=== PATIENT | female | born 1945 | race Caucasian/White ===

== ENCOUNTER → 2023-05-30 06:19 | Day surgery (SDC) | payer MEDICARE, OTHER, SELFPAY | LOC: GI 06:19 | PROVIDERS: ATTENDING PHYSICIAN Internal Medicine Gastroenterology | DX: Z12.11 Encounter for screening for malignant neoplasm of colon (principal); K64.8 Other hemorrhoids; K57.30 Diverticulosis of large intestine without perforation or abscess without bleeding; D12.3 Benign neoplasm of transverse colon; Z86.010 Personal history of colon polyps | CPT/HCPCS: 45380; 88305 ==

== ENCOUNTER → 2023-06-02 06:20 | Day surgery (SDC) | payer MEDICARE, OTHER, SELFPAY ==
[2023-06-02 11:55] VITALS: BMI 21.4
[2023-06-02 12:02] VITALS: BP 157/101; BMI 21.4
[2023-06-02] MEDS: TYLENOL 1000 MG PO (12:12)
[2023-06-02] MEDS: CELEBREX 200 MG PO (12:12)
[2023-06-02] MEDS: NORMOSOL-R 1000 IV (12:27)
[2023-06-02 17:30] VITALS: BP 134/78; BP 157/101
[2023-06-02 17:45] VITALS: BP 141/75
[2023-06-02 17:50] VITALS: BP 141/75
[2023-06-02 18:05] VITALS: BP 143/85
[2023-06-02 18:20] VITALS: BP 137/89
== END ==
LOC: SDS 06:20
PROVIDERS: ATTENDING PHYSICIAN Student in an Organized Health Care Education/Training Program
DX: M20.12 Hallux valgus (acquired), left foot (principal); M20.42 Other hammer toe(s) (acquired), left foot; M21.622 Bunionette of left foot; D16.32 Benign neoplasm of short bones of left lower limb
CPT/HCPCS: 28292; 28110; 28285; C1713; C1776

== ENCOUNTER 2023-06-17 10:13 | Emergency (ER) | payer MEDICARE, OTHER, SELFPAY ==
[2023-06-17] VITALS (16 sets, daily range): BP systolic 114–149; BP diastolic 75–115; BMI 22.8
[2023-06-17] MEDS: DILAUDID 1 MG IV (10:44)
[2023-06-17 11:03] LABS: % Basophils 0.9 % (0-2); % Eosinophils 1.2 % (0-6); % Immature Granulocytes 0.4 % (0-0.5); % Lymphocytes 19.1 % (20.5-51.1); % Monocytes 7.7 % (1.7-9.3); % Neutrophils 70.7 % (42.2-75.2); Absolute Basophils 0.1 10^3/uL (0-0.2); Absolute Eosinophils 0.1 10^3/uL (0-0.7); Absolute Lymphocytes 1.4 10^3/uL (1.2-3.4); Absolute Monocytes 0.6 10^3/uL (0.1-0.6); Absolute Neutrophils 5.3 10^3/uL (1.4-6.5); Hematocrit 38.5 % (37.0-47.0); Mean Corp Hgb Conc. 33.8 g/dL (33.0-37.0); Mean Corpuscular Hgb 31.8 pg (27.0-31.0); Mean Corpuscular Volume 94.1 fL (81.0-99.0); Mean Platelet Volume 10.6 fL (7.4-10.4); Nucleated Red Blood Cells % 0 %; Platelet Count 283 10^3/uL (130-400); Red Blood Cell Count 4.09 10^6/uL (4.20-5.40); Red Cell Dist. Width 12.9 % (11.5-14.5); White Blood Cell Count 7.6 10^3/uL (4.8-10.8)
[2023-06-17 11:10] LABS: Blood Urea Nitrogen 25 mg/dl (7-17); Calcium 9.3 mg/dl (8.4-10.2); Carbon Dioxide 30 mmol/L (22-30); Chloride 102 mmol/L (98-107); Estimated Creatinine Clearance 65 ml/min; Glucose 88 mg/dl (70-99); Potassium 3.4 mmol/L (3.5-5.1); Sodium 139 mmol/L (135-145); eGFR > 60.00
--- NOTE | 2023-06-17 12:29 | ED.GENMED ---
History of Present Illness
<Yared Muñoz Jr., PA-C - Last Filed: 06/17/23 14:42>
General
Chief Complaint: Musculo-Skeletal Complaint
Source: patient
Exam Limitations: none
Time Seen by Provider: 06/17/23 10:34
Nursing documentation reviewed up to this point in time: agreed with
Travel History
Have you had any contact with someone who has COVID-19?: No
Do you have any symptoms of coronavirus? Fever > 100 degrees, chills, cough, shortness of breath, sore throat, loss of taste or smell, muscle aches, or headache?: No
History of Present Illness
History of Present Illness:
The patient is a 78-year-old female with past medical history of A-fib hypertension anxiety multiple orthopedic surgeries presenting to the emergency department today after feeling a pop in her right hip after leaning over. Unable to ambulate
since. Of note she recently had surgery to her left foot she claims this is otherwise been healing well.
Past History
<Yared Muñoz Jr., PA-C - Last Filed: 06/17/23 14:42>
Past History
ED Past Medical History: Arrthythmia (Atrial fibrillation), HTN and Other (Arthritis)
ED Past Surgical History: Gynecological (Hysterectomy), Orthopedic (Bilateral knee replacements, left total hip replacement) and Tonsilectomy
Social History
Tobacco: Non-smoker
Alcohol: None
Drug: None
Personal: Single
Review of Systems
<Yared Muñoz Jr., PA-C - Last Filed: 06/17/23 14:42>
Review of Systems
Allergies reviewed?: Yes
All Other Systems: ROS reviewed and negative except as documented in HPI and ROS
Phy Exam
<Yared Muñoz Jr., PA-C - Last Filed: 06/17/23 14:42>
Physical Exam
Physical Exam:
GENERAL: Alert , in no apparent distress
EYE: pupils equal and reactive
NECK: Supple, no significant adenopathy.
ENT: o/p clr, mmm.
CARDIAC: Regular rate and rhythm .
LUNGS: Clear breath sounds bilaterally, no acute respiratory distress, no wheezes/rales/rhonchi
ABDOMEN: Soft, without focal tenderness, no r/g, no cvat
NEUROLOGICAL: Alert and oriented, no focal neuro deficits
SKIN: Warm and dry, skin intact.
MUSCULOSKELETAL: Deformity and tenderness palpation of the right hip. Unable to move without significant pain. Well perfused.
PSYCH: Normal and appropriate interaction.
Course
<Yared Muñoz Jr., KEIRA-Jose - Last Filed: 06/17/23 14:42>
Orders/Labs/Results
Orders:
Orders
06/17/23 10:37
Hip, Right 2-3 Views [CR Hip - RT w/wo Pel 2-3 Vw*] Urgent
Comment:
Reason For Exam: hip pain felt pop, had total hip
Include a pelvis x-ray?: Yes
06/17/23 10:41
HYDROmorphone [Dilaudid] 1 mg IV NOW STA
06/17/23 10:43
BMP [Basic Metabolic Panel] Urgent
CBC/With Diff [Complete Blood Count/With Diff] Urgent
06/17/23 12:50
Propofol [Diprivan] 20 ml .ROUTE .STK-MED
06/17/23 13:18
Hip, Right 2-3 Views [CR Hip - RT w/wo Pel 2-3 Vw*] Urgent
Comment:
Reason For Exam: post reduction needs portable
Include a pelvis x-ray?: No
Abnormal Lab Results
06/17/23
10:43
RBC 4.09 L 10^6/uL
(4.20-5.40)
MCH 31.8 H pg
(27.0-31.0)
MPV 10.6 H fL
(7.4-10.4)
Lymphocytes % 19.1 L %
(20.5-51.1)
Potassium 3.4 L mmol/L
(3.5-5.1)
BUN 25 H mg/dl
(7-17)
06/17/23 10:43
06/17/23 10:43
Vital Signs
Initial and Last Documented VS:
Initial Vital Signs
Temp Pulse Resp BP Pulse Ox
98.1 F 72 13 148/85 99
06/17/23 10:31 06/17/23 10:31 06/17/23 10:31 06/17/23 10:31 06/17/23 10:31
Last Documented Vital Signs
Temp Pulse Resp BP Pulse Ox
97.8 F 59 13 139/86 95
06/17/23 12:51 06/17/23 14:30 06/17/23 14:30 06/17/23 14:15 06/17/23 14:30
<Parvez Sims, DO - Last Filed: 06/17/23 13:12>
Orders/Labs/Results
Orders:
Orders
06/17/23 10:37
Hip, Right 2-3 Views [CR Hip - RT w/wo Pel 2-3 Vw*] Urgent
Comment:
Reason For Exam: hip pain felt pop, had total hip
Include a pelvis x-ray?: Yes
06/17/23 10:41
HYDROmorphone [Dilaudid] 1 mg IV NOW STA
06/17/23 10:43
BMP [Basic Metabolic Panel] Urgent
CBC/With Diff [Complete Blood Count/With Diff] Urgent
06/17/23 12:50
Propofol [Diprivan] 20 ml .ROUTE .STK-MED
06/17/23 13:18
Hip, Right 2-3 Views [CR Hip - RT w/wo Pel 2-3 Vw*] Urgent
Comment:
Reason For Exam: post reduction needs portable
Include a pelvis x-ray?: No
Abnormal Lab Results
06/17/23
10:43
RBC 4.09 L 10^6/uL
(4.20-5.40)
MCH 31.8 H pg
(27.0-31.0)
MPV 10.6 H fL
(7.4-10.4)
Lymphocytes % 19.1 L %
(20.5-51.1)
Potassium 3.4 L mmol/L
(3.5-5.1)
BUN 25 H mg/dl
(7-17)
06/17/23 10:43
06/17/23 10:43
Vital Signs
Initial and Last Documented VS:
Initial Vital Signs
Temp Pulse Resp BP Pulse Ox
98.1 F 72 13 148/85 99
06/17/23 10:31 06/17/23 10:31 06/17/23 10:31 06/17/23 10:31 06/17/23 10:31
Last Documented Vital Signs
Temp Pulse Resp BP Pulse Ox
97.8 F 59 13 139/86 95
06/17/23 12:51 06/17/23 14:30 06/17/23 14:30 06/17/23 14:15 06/17/23 14:30
Procedures
<Yared Muñoz Jr., PA-C - Last Filed: 06/17/23 14:42>
Joint/Fracture Reduction
Right Hip:
Indication for procedure:: right hip dislocation
Procedure completed by: Myself, Dr. Limon
Consent form signed: Yes
Joint reduced: with anesthesia sedation (Propofol)
Anesthesia/sedation: Moderate sedation
Injury was: closed
Further treatement: needs re-check only
Post reduction exam: stable
Capillary Refill: normal
Normal distal neurovascular exam?: Yes
Peripheral Pulses: dorsalis pedis (right): 2+
Additional information:
Time out 1254 total procedure 11 minutes. Patient was given 80 mg of propofol with good sedation. This was reduced with traction and external rotation. Post film performed
<Yared Muñoz Jr., PA-C - Last Filed: 06/17/23 14:42>
MDM/Problems Addressed
MDM/Problems Addressed:
78-year-old female presenting to the emergency department today with concerns of right hip discomfort after feeling a pop when leaning over. History of hip replacement. Here deformity of the right hip appears consistent with dislocation x-ray
confirming. Neurovascular intact distally
Patient last ate at least 4 hours prior to sedation for the dislocation of the hip. Patient without any known allergies to anesthesia no known history of propofol has had multiple procedures before without any issues with anesthesia. Patient with
normal posterior pharynx. Mallampati class II.
Reduction performed without incident. No complications. Case discussed with orthopedics. Patient will follow-up closely and was discharged with a knee immobilizer to reduce the possibility of significant hip flexion. Return precautions given.
<Yared Muñoz Jr., PA-C - Last Filed: 06/17/23 14:42>
*Critical Care Note
Total Time (30-74mins, 75-104mins- exclusive of procedures): Not Applicable
ED Attending Note
<Yared Muñoz Jr., PA-C - Last Filed: 06/17/23 14:42>
-
Portions of this chart may have been created with voice recognition software.� Occasional wrong word or��sound alike� substitutions may have occurred due to the inherent limitations of voice recognition software.
<Parvez Sims DO - Last Filed: 06/17/23 13:12>
ED Attending Note
Patient seen and examined by attending physician: Yes
I performed the substantive portion of visit, reviewed & personally made and approve the management plan that is documented in note by myself or SAVANNA.: Yes
I performed a history and physical exam of patient and discussed management with resident, I reviewed resident's note and agree with documented findings and plan of care.: Yes
ED Attending Note:
I personally performed bedside evaluation. The patient has exam consistent with hip dislocation confirmed by x-rays that I reviewed. The patient was given a total of 90 mg of propofol (20 mg then 10 then 10 then 10 then 10 then 10 mg then 20 mg).
I personally attempted reduction procedure on the bed then at [place] was able to perform closed reduction successfully.
Discharge Plan
Departure
Patient Disposition: Home (Routine Discharge)
Date of Disposition: 06/17/23
Time of Disposition: 14:41
Patient with high blood pressure during this ER visit?: No
Condition: Good
Covid-19: Not Applicable
Discharge Problem:
Dislocation of hip, right, closed
Instructions: Hip Dislocation (DC)
Prescriptions:
No Action
estradiol 0.5 MG tablet
0.5 mg PO DAILY
cyclosporine [Restasis] 10 DROPS dropperette
1 drp BOTH EYES BID Qty: 0
Vitamin C 2,000 MG tablet extended release
2,000 mg PO DAILY
flecainide 100 MG tablet
100 mg PO BID
atenolol 50 MG tablet
50 mg PO BID
aspirin 81 MG tablet,chewable
81 mg PO DAILY Qty: 30 0RF
lisinopril 20 MG tablet
20 mg PO DAILY
acetaminophen [Tylenol Extra Strength] 500 MG tablet
1,000 mg PO Q6HPRN PRN (Reason: PAIN)
coenzyme [id number] E 1 CAP capsule
1 cap PO DAILY
cholecalciferol (vitamin D3) 2,000 UNITS tablet
2,000 units PO DAILY
omega 1-szu-wcy-fish oil [Fish Oil] 1 EACH capsule
2 ea PO DAILY
PreserVision AREDS-2 1 EACH capsule
1 ea PO BID
diphenhydramine-acetaminophen [Tylenol PM Extra Strength] 1 EACH tablet
1 ea PO HSPRN PRN (Reason: SLEEP)
furosemide 40 mg Tablet
40 mg PO DAILY
potassium chloride [Klor-Con M20] 20 mEq Tablet,Er Particles/Crystals
20 meq PO DAILY
colestipol 1 gram Tablet
1 g PO TID
Prevagen
1 tab PO DAILY
Probiotic Acidophilus
1 tab PO DAILY
Referrals:
Noe Whiteside MD [Active] - Follow up in 1 week
Mitch Marc MD [Family Provider] -
Activity Restrictions/Additional Instructions:
You came to the emergency department today with concerns of a hip dislocation. This was reduced here. Please avoid any excessive flexion of the hip. Please wear the knee immobilizer to help with this. Follow close with Ortho. Return to the
emergency department for any worsening, new or concerning symptoms.
Interventions
Interventions:
*Risk Screen - Suicide Last Done: 06/17/23 10:31
*General Assessment Last Done: 06/17/23 10:31
*Neglect/Abuse Screening Last Done: 06/17/23 10:31
ED- Fall Risk Assessment Last Done: 06/17/23 10:37
*ED COVID-19 Vaccine History Last Done: 06/17/23 10:31
ED-Musculoskeletal Assessment Last Done: 06/17/23 10:37
== END 2023-06-17 15:11 | disposition home or self-care (01) ==
LOC: EMR 10:13
PROVIDERS: Physician Assistant; EMERGENCY PHYSICIAN Emergency Medicine; FAMILY PHYSICIAN Internal Medicine
DX: T84.020A Dislocation of internal right hip prosthesis, initial encounter (principal); W19.XXXA Unspecified fall, initial encounter; Y79.2 Prosthetic and other implants, materials and accessory orthopedic devices associated with adverse incidents
CPT/HCPCS: 99285; 96374; 27265; 99152; 73502; 80048; 85025

== ENCOUNTER 2023-12-24 06:46 | Emergency (ER) | payer MEDICARE, OTHER, SELFPAY ==
[2023-12-24] VITALS (12 sets, daily range): BP systolic 119–182; BP diastolic 57–104; BMI 24.2
--- NOTE | 2023-12-24 07:43 | ED.MUSCINJ ---
HPI-Injury
<Bharat Benitez PA-C - Last Filed: 12/24/23 09:49>
General
Chief Complaint: Musculo-Skeletal Complaint
Source: patient
Exam Limitations: none
Time Seen by Provider: 12/24/23 07:36
History of Present Illness-Injury
Initial Injury comments:
78-year-old female presents with right hip pain starting today. She said she bent in the wrong direction of her hip pop out of place. Her right hip was replaced in 2017. She has had 1 prior dislocation several months ago. She with severe pain to
the right. She is not anticoagulated. No other complaints at this time
Past History
<Bharat Benitez PA-C - Last Filed: 12/24/23 09:49>
Past History
ED Past Medical History: Arrthythmia (Atrial fibrillation), HTN and Other (Arthritis)
ED Past Surgical History: Gynecological (Hysterectomy), Orthopedic (Bilateral knee replacements, left total hip replacement) and Tonsilectomy
Social History
Tobacco: Non-smoker
Alcohol: None
Drug: None
Personal: Single
Phy Exam
<Bharat Benitez PA-C - Last Filed: 12/24/23 09:49>
Physical Exam
Physical Exam:
General: Well-appearing but uncomfortable female no acute respiratory distress
HEENT: Normocephalic
Musculoskeletal exam: Right leg is held in flexion with internal rotation she is tender about the right
Extremities: No cyanosis
Injury Course
<Bharat Benitez PA-C - Last Filed: 12/24/23 09:49>
Orders/Labs/Results
Orders:
Orders
12/24/23 07:42
CR Hip - RT without Pel 1 Vw Urgent
Comment:
Reason For Exam: pain, possible dislocation
12/24/23 08:36
ASA Classification Routine
Propofol [Diprivan] 100 mg IV NOW STA
12/24/23 09:04
CR Hip - RT without Pel 1 Vw Urgent
Comment:
Reason For Exam: post reduction
12/24/23 09:15
Knee Immobilizer Right-Treatme ONCE
<Reynaldo Santillan, DO - Last Filed: 12/24/23 09:05>
Orders/Labs/Results
Orders:
Orders
12/24/23 07:42
CR Hip - RT without Pel 1 Vw Urgent
Comment:
Reason For Exam: pain, possible dislocation
12/24/23 08:36
ASA Classification Routine
Propofol [Diprivan] 100 mg IV NOW STA
12/24/23 09:04
CR Hip - RT without Pel 1 Vw Urgent
Comment:
Reason For Exam: post reduction
12/24/23 09:15
Knee Immobilizer Right-Treatme ONCE
Procedures
<Reynaldo Santillan, DO - Last Filed: 12/24/23 09:05>
Moderate Sedation
ASA Risk Score: Class II
Chart and allergies reviewed: Yes
Consent for anesthesia obtained: Yes
Time out completed (validating right patient & procedure): Yes
Moderate Sedation Start Time(when first medication is given): 08:53
History of difficult intubation: No
Airway free of obstruction: Yes
Patient has a gag reflex: Yes
Patient is able to open mouth: Yes
Patient has no dentures: Yes
Patient has no loose teeth: Yes
Medication administered by Provider during Moderate Sedation: IV Propofol (mg)
Total dose administered: 75
Time drug administered: 08:53
Moderate Sedation Procedure End Time: 09:04
Joint/Fracture Reduction
Right Anterior Hip:
Indication for procedure:: Right hip dislocation
Procedure completed by: Geovanny Benitez PA-C
Consent form signed: Yes
Joint reduced: with anesthesia sedation
Injury was: closed
Further treatement: needs re-check only
Post reduction exam: stable
Capillary Refill: normal
Peripheral Pulses: dorsalis pedis (right): 2+
<Bharat Benitez PA-C - Last Filed: 12/24/23 09:49>
MDM/Problems Addressed
Differential Diagnosis Includes:
Right hip pain. Likely prosthetic hip dislocation. X-ray pending to evaluate for any underlying fracture.
<Bharat Benitez PA-C - Last Filed: 12/24/23 09:49>
*Critical Care Note
Total Time (30-74mins, 75-104mins- exclusive of procedures): Not Applicable
<Bharat Benitez PA-C - Last Filed: 12/24/23 09:49>
Update Note
Update Note:
Initial x-rays did confirm right hip dislocation. Written consent was obtained for moderate sedation and reduction of the right hip. This was done using propofol. A total of 75 mg of propofol was used. This was performed by emergency room
attending. The hip was reduced with hip flexion and internal rotation. Postreduction films demonstrated successful reduction. Patient has been recovered from anesthesia and has ambulated and is tolerating oral fluids. Stable for discharge. Knee
immobilizer applied
ED Attending Note
<Bharat Benitez PA-C - Last Filed: 12/24/23 09:49>
-
Portions of this chart may have been created with voice recognition software.� Occasional wrong word or��sound alike� substitutions may have occurred due to the inherent limitations of voice recognition software.
<Reynaldo Santillan DO - Last Filed: 12/24/23 09:05>
ED Attending Note
Patient seen and examined by attending physician: Yes
ED Attending Note:
I have seen and evaluated the patient with a [id number] encounter. I have spoken to the advance practicer provider and involved in the medical history, the physical exam, medical decision making.
Evaluation and management service: agree unless noted differently below.
Results interpretation: agree unless noted differently below.
Focused HPI: 78-year-old female presenting with right hip pain. Patient believes she dislocated bending over
Physical exam: Mildly uncomfortable. Right leg externally rotated and shortened. Distal extremity neurovascular intact
Medical Decision Making: Patient tolerated moderate sedation and reduction well. There were no complications noted.
Discharge Plan
Departure
Patient Disposition: Home (Routine Discharge)
Date of Disposition: 12/24/23
Time of Disposition: 09:48
Patient with high blood pressure during this ER visit?: No
Discharge Problem:
Closed dislocation of right hip
Instructions: Knee Immobilizer (DC), MODERATE SEDATION ADULT
Prescriptions:
No Action
estradiol 0.5 MG tablet
0.5 mg PO DAILY
cyclosporine [Restasis] 10 DROPS dropperette
1 drp BOTH EYES BID Qty: 0
Vitamin C 2,000 MG tablet extended release
2,000 mg PO DAILY
flecainide 100 MG tablet
100 mg PO BID
atenolol 50 MG tablet
50 mg PO BID
aspirin 81 MG tablet,chewable
81 mg PO DAILY Qty: 30 0RF
lisinopril 20 MG tablet
20 mg PO DAILY
acetaminophen [Tylenol Extra Strength] 500 MG tablet
1,000 mg PO Q6HPRN PRN (Reason: PAIN)
coenzyme [id number] E 1 CAP capsule
1 cap PO DAILY
cholecalciferol (vitamin D3) 2,000 UNITS tablet
2,000 units PO DAILY
omega 6-xkm-qkx-fish oil [Fish Oil] 1 EACH capsule
2 ea PO DAILY
PreserVision AREDS-2 1 EACH capsule
1 ea PO BID
diphenhydramine-acetaminophen [Tylenol PM Extra Strength] 1 EACH tablet
1 ea PO HSPRN PRN (Reason: SLEEP)
furosemide 40 mg Tablet
40 mg PO DAILY
potassium chloride [Klor-Con M20] 20 mEq Tablet,Er Particles/Crystals
20 meq PO DAILY
colestipol 1 gram Tablet
1 g PO TID
Prevagen
1 tab PO DAILY
Probiotic Acidophilus
1 tab PO DAILY
Referrals:
Mitch Marc MD [Family Provider] -
Activity Restrictions/Additional Instructions:
Please use knee immobilizer. You may take Tylenol if needed for pain. Follow-up with your orthopedic
Interventions
Interventions:
*Risk Screen - Suicide Last Done: 12/24/23 06:55
*General Assessment Last Done: 12/24/23 06:55
*Neglect/Abuse Screening Last Done: 12/24/23 07:16
ED- Fall Risk Assessment Last Done: 12/24/23 06:55
*ED COVID-19 Vaccine History Last Done: 12/24/23 06:55
ED-Musculoskeletal Assessment Last Done: 12/24/23 07:19
Discharge Date and Time
Print Language: LAO
== END 2023-12-24 10:30 | disposition home or self-care (01) ==
LOC: EMR 06:46
PROVIDERS: EMERGENCY PHYSICIAN Student in an Organized Health Care Education/Training Program; FAMILY PHYSICIAN Internal Medicine
DX: S73.004A Unspecified dislocation of right hip, initial encounter (principal); X50.1XXA Overexertion from prolonged static or awkward postures, initial encounter; I48.91 Unspecified atrial fibrillation; I10 Essential (primary) hypertension; Z90.710 Acquired absence of both cervix and uterus; Z96.653 Presence of artificial knee joint, bilateral
CPT/HCPCS: 99284; 27252; 96374; 73501

== ENCOUNTER → 2024-01-26 08:56 | Outpatient (REF) | payer MEDICARE, OTHER, SELFPAY ==
[2024-01-26 12:01] LABS: Urine Albumin Trace (Neg - Trace); Urine Bilirubin Negative (Negative); Urine Character Clear (Clear); Urine Color Yellow; Urine Glucose Negative (Negative); Urine Ketone Negative (Negative); Urine Leukocyte Negative (Negative); Urine Nitrite Negative (Negative); Urine Occult Blood Negative (Negative); Urine Specific Gravity 1.015 (<1.030); Urine Urobilinogen Negative (Neg - 1+)
[2024-01-26 13:05] LABS: Protein/creatinine Ratio 0.4; Urine Protein 32 mg/dl
[2024-01-26 13:06] LABS: Erythrocyte Sed Rate 11 mm/hour (0-20)
[2024-01-26 13:30] LABS: Complement C3 120 mg/dl (88-165)
[2024-01-28 00:55] LABS: ANA, IgG Reflex to HEp-2 Detected (None Detected)
[2024-01-28 02:06] LABS: ds-DNA Ab, IgG Reflex To Titer 24 IU (0-24)
== END ==
LOC: HWRCS 08:56
PROVIDERS: ATTENDING PHYSICIAN Nurse Practitioner; FAMILY PHYSICIAN Nurse Practitioner Adult Health; REFERRING PHYSICIAN Internal Medicine
DX: I50.32 Chronic diastolic (congestive) heart failure (principal); R76.8 Other specified abnormal immunological findings in serum; T69.1XXD Chilblains, subsequent encounter
CPT/HCPCS: 36415; 81003; 82570; 84156; 85652; 86038; 86140; 86160; 86225; 93306

== ENCOUNTER 2024-02-27 08:22 | Inpatient (IN) | payer MEDICARE, OTHER, SELFPAY ==
[2024-01-24 10:36] VITALS: BMI 22.5
[2024-01-24 11:30] LABS: % Basophils 0.8 % (0-2); % Eosinophils 0.6 % (0-6); % Immature Granulocytes 0.2 % (0-0.5); % Lymphocytes 12.6 % (20.5-51.1); % Monocytes 9.9 % (1.7-9.3); % Neutrophils 75.9 % (42.2-75.2); Absolute Lymphocytes 0.6 10^3/uL (1.2-3.4); Absolute Monocytes 0.5 10^3/uL (0.1-0.6); Absolute Neutrophils 3.6 10^3/uL (1.4-6.5); Hemoglobin 14.7 g/dL (12.0-16.0); Mean Corp Hgb Conc. 33.4 g/dL (33.0-37.0); Mean Corpuscular Hgb 31.7 pg (27.0-31.0); Mean Platelet Volume 11.1 fL (7.4-10.4); Nucleated Red Blood Cells % 0 %; Platelet Count 176 10^3/uL (130-400); Red Blood Cell Count 4.63 10^6/uL (4.20-5.40); Red Cell Dist. Width 13.2 % (11.5-14.5); White Blood Cell Count 4.8 10^3/uL (4.8-10.8)
[2024-01-24 12:04] LABS: ALT (SGPT) 19 U/L (0-35); AST (SGOT) 28 U/L (14-36); Albumin 4.5 g/dl (3.5-5.0); Alkaline Phosphatase 121 U/L (38-126); Blood Urea Nitrogen 28 mg/dl (7-17); Calcium 10.2 mg/dl (8.4-10.2); Carbon Dioxide 32 mmol/L (22-30); Chloride 99 mmol/L (98-107); Estimated Creatinine Clearance 57 ml/min; Glucose 87 mg/dl (70-99); Potassium 4.1 mmol/L (3.5-5.1); Sodium 141 mmol/L (135-145); Total Bilirubin 1.1 mg/dl (0.2-1.3); Total Protein 7.1 g/dl (6.3-8.2); eGFR > 60.00
[2024-02-21 08:31] VITALS: BMI 22.5
[2024-02-21 09:07] VITALS: BMI 22.5
[2024-02-27] VITALS (14 sets, daily range): BP systolic 80–162; BP diastolic 49–95; PULSE 57–59; O2SAT 99; BMI 22.5
[2024-02-27] MEDS: CELEBREX 200 MG PO (09:13)
[2024-02-27] MEDS: TYLENOL 650 MG PO ×3 (09:13→20:24)
[2024-02-27] MEDS: ROXICODONE 5 MG PO (13:17)
--- NOTE | 2024-02-27 13:30 | W.PN.ORTHO ---
Today's Communication / Plan
-
D/c when clinically stable.
Assessment
.
Distal Motor Intact: Yes
Dressing:
Clean, dry and intact.
Assessment:
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
DVT prophylaxis - ASA, b/l venous foot pumps
HTN - + parameters - monitor BP
PAF � monitor on tele
- Continue Flecainide and Atenolol
- Continue ASA but at 325 mg daily x4 weeks for blood clot prevention. Has declined Warfarin and Eliquis previously.
Chronic diastolic HF - reduce hourly IVF rate to prevent fluid overload
- Continue Lasix but w/ BP parameters to prevent hypotension
Balance difficulties - on fall precautions
OA s/p b/l TKA, 2012, L SHAREE, 2016, and R SHAREE, 2017, by Dr Whiteside
HLD
Mild-moderate MR
Mild TR
Diverticulosis
Scoliosis
Anxiety
Osteopenia
+ ARMANDO
Macular degeneration
Childhood TB
Will benefit from prophylactic Cefadroxil upon d/c
Plan
.
Surgery / Date: Revision R SHAREE w/ Dr Whiteside 02/26
DVT Prophylaxis: Aspirin
Activity:
Out of bed.
PT/OT
Discharge Plan: Home w/ VN (w/ transition to outpatient PT )
Subjective
.
.:
Patient resting comfortably in PACU.
R hip pain minimal and currently well tolerated.
Denies any new significant complaints.
Vital Signs and Labs
.
Vital Signs and Labs:
Lab Results
01/24/24 09:31
01/24/24 09:31
Physical Exam
-
HEENT: No pallor, cyanosis, or jaundice. Throat clear.
NECK: Supple. No JVD.
RESPIRATORY: Lungs clear to auscultation.
CVS: S1, S2 normal. RRR.�
ABDOMEN: Soft, non-tender. No distension.
EXTREMITIES: No calf pain with palpation/dorsiflexion. Calves soft.
WRAPPER OFF: AOx3. No focal deficits. forming process line worker grossly intact
--- NOTE | 2024-02-27 14:07 | VNURNOTE ---
Chart reviewed. Spoke with patient. She stated she expects to be DC tomorrow. [facility], frequency of visits, pet policy. Patient reports she has outpt PT scheduled for next week 'the 3rd or 4th.' Referral accepted in [facility].
patient in agreement with plan. [facility] intake [facility] updated.
[2024-02-27] MEDS: TYLENOL PO (14:44)
[2024-02-27] MEDS: NORMOSOL-R/PLASMALYTE-A 1000 IV (15:53)
[2024-02-27] MEDS: ERYTHROMYCIN 0.5% OPHTHALMIC OINTMENT 1 APPLIC OPHTH ×3 (15:58→20:28)
[2024-02-27] MEDS: VITAMIN D3 (cholecalciferol) PO (16:01)
[2024-02-27] MEDS: ASPIRIN 325 MG PO (18:05)
[2024-02-27] MEDS: ANCEF 5 IV (18:21)
[2024-02-27] MEDS: COLACE 100 MG PO (20:24)
[2024-02-27] MEDS: SENOKOT 17.2 MG PO (20:24)
[2024-02-27] MEDS: DECADRON 4 MG PO (20:24)
[2024-02-27] MEDS: TENORMIN 50 MG PO (20:24)
[2024-02-27] MEDS: PEPCID 20 MG PO (20:25)
[2024-02-27] MEDS: TAMBOCOR 100 MG PO (20:25)
[2024-02-27] MEDS: BACTROBAN 2% OINTMENT 1 APPLIC NASAL (20:25)
[2024-02-28] VITALS (7 sets, daily range): BP systolic 85–110; BP diastolic 46–66; PULSE 59–86; O2SAT 98–100
[2024-02-28] MEDS: TYLENOL PO (00:13)
[2024-02-28] MEDS: ANCEF 5 IV (03:04)
[2024-02-28] MEDS: TYLENOL 650 MG PO ×2 (03:07→08:47)
[2024-02-28] MEDS: NSS 250 IV (03:27)
--- NOTE | 2024-02-28 04:41 | PTCARENOTE ---
pt with hypotension sbp in the 80's and was slightly symptomatic with dizziness. postal inspector gave order for fluid bolus- bp 98/60 after bolus and pt is no longer dizzy
[2024-02-28] MEDS: TAMBOCOR PO (08:45)
[2024-02-28] MEDS: COLACE 100 MG PO (08:46)
[2024-02-28] MEDS: ASPIRIN 325 MG PO (08:46)
[2024-02-28] MEDS: VITAMIN D3 (cholecalciferol) 50 MCG PO (08:46)
[2024-02-28] MEDS: BACTROBAN 2% OINTMENT 1 APPLIC NASAL (08:46)
[2024-02-28] MEDS: SENOKOT 17.2 MG PO (08:46)
[2024-02-28] MEDS: DECADRON 4 MG PO (08:48)
[2024-02-28] MEDS: CELEBREX 200 MG PO (08:48)
[2024-02-28] MEDS: ERYTHROMYCIN 0.5% OPHTHALMIC OINTMENT 1 APPLIC OPHTH (08:56)
[2024-02-28] MEDS: TENORMIN PO (09:15)
--- NOTE | 2024-02-28 10:09 | CM ---
Addendum entered by Beverly Giron RN 02/28/24 11:36:
Per VN, they will follow patient until she is able to go to outpatient therapy on Tuesday.
Original Note:
Reviewed the chart notes and spoke with the patient at the bedside. The patient resides with her daughter in a two story home with three steps to enter. The patient's bedroom and bath are on the first level. The patient has a rolling walker,
cane, raised toilet seat, shower chair, and rails. The patient reports on VN or SNF in the past. The patient will start outpatient therapy on Tuesday. The patient's daughter will provide transportation home. CM continues to be available to
patient/family and is monitoring medical plan for needs at discharge.
Plan: Discharge to home today. No additional needs being identified at this time.
--- NOTE | 2024-02-28 10:42 | W.PN.ORTHO ---
Today's Communication / Plan
-
Await OT recs. Pt did well w/ PT.
D/c later today if remaining clinically stable.
Assessment
.
Distal Motor Intact: Yes
Dressing:
Moderate amount of old incisional bleeding. Dressing to be changed prior to d/c.
Assessment:
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
DVT prophylaxis - ASA, b/l venous foot pumps
HTN - + parameters
- Had symptomatic hypotension (dizziness) overnight which responded well to an IVF bolus. BPs improved and no longer symptomatic. Tolerated PT well. Will continue SBP parameters at home while on post-surgical narcotics
PAF � maintaining rate controlled a fib
- Continue Flecainide and Atenolol
- Continue ASA but at 325 mg daily x4 weeks for blood clot prevention. Has declined Warfarin and Eliquis previously
- Plasma flow devices recommended for d/c
Chronic diastolic HF - reduced hourly IVF rate to prevent fluid overload
- Continue Lasix but w/ BP parameters to prevent further hypotension
Balance difficulties - on fall precautions
OA s/p b/l TKA, 2012, L SHAREE, 2016, and R SHAREE, 2017, by Dr Whiteside
HLD
Mild-moderate MR
Mild TR
Diverticulosis
Scoliosis
Anxiety
Osteopenia
+ ARMANDO
Macular degeneration
Childhood TB
Will benefit from prophylactic Cefadroxil upon d/c
Plan
.
Surgery / Date: Revision R SHAREE w/ Dr Whiteside 02/26
DVT Prophylaxis: Aspirin
Activity:
Out of bed.
PT/OT
Discharge Plan: Home w/ VN
Subjective
.
.:
Patient resting comfortably in bed.
R hip pain tolerable w/ minimal pain medications.
Symptomatic hypotension overnight, improving w/ IVF bolus.
Denies any other new significant complaints.
Eager for potential d/c today.
Vital Signs and Labs
.
Vital Signs and Labs:
Lab Results
01/24/24 09:31
01/24/24 09:31
Temp Pulse Resp BP Pulse Ox
97.0 F 65 14 110/63 95
02/28/24 08:07 02/28/24 08:48 02/28/24 08:07 02/28/24 08:48 02/28/24 08:07
Non-invasive Hgb result: 12.8
Physical Exam
-
HEENT: No pallor, cyanosis, or jaundice. Throat clear.
NECK: Supple. No JVD.
RESPIRATORY: Lungs clear to auscultation.
CVS: Irregular irregular.
ABDOMEN: Soft, non-tender. No distension.
EXTREMITIES: Strength equal, no calf pain with palpation/dorsiflexion. Calves soft.
WORSHIP PASTOR: AOx3. No focal deficits. order clerk grossly intact
--- NOTE | 2024-02-28 11:07 | W.DS.TRANS ---
DC Summary - [facility]
-
Discharge Instructions:
Sleep Apnea Risk Low
Discharge Diagnosis/Procedures Dislocation of R hip prosthesis s/p Revision of
R SHAREE, conversion to constrained liner w/ Dr
[place] 02/27/24
Diet Regular
Activity As tolerated,With Walker
Driving Restrictions Not until seen by your Dr
Bathing Restrictions OK to Shower
Other Services PT,VN
Wound Care Dressing to be removed 1 week post-surgery.
Specialty Instructions Weigh Daily
Instructions:
Stand-Alone Forms: Total Hip/Knee Replacement D/C
Changes to Home Medications: Yes
Discharge Medications:
DC Medications w/original date entered in [facility]
estradiol 0.5 mg tablet 0.5 mg PO DAILY HORMONE 09/29/15
flecainide 100 mg tablet 100 mg PO BID AFIB 09/08/16
cholecalciferol (vitamin D3) 50 mcg (2,000 unit) tablet 2,000 units PO DAILY Supplement 01/30/21
omega 0-axa-jlf-fish oil 300 mg-1,000 mg capsule (Fish Oil) 1 cap PO BID Supplement 01/30/21
vit C 250 mg-vit E 90 mg-zinc 40 mg-copper 1 if-ygvpds-[id number] capsule (PreserVision AREDS-2) 1 ea PO BID Supplement 01/30/21
Prevagen 1 tab PO DAILY Supplement 05/27/23
colestipol 1 gram tablet 1 g PO TID High Cholesterol 05/27/23
ascorbic acid (vitamin C) 1,000 mg tablet,extended release (Vitamin C ER) 2,000 mg PO DAILY Supplement 02/21/24
coenzyme Q10 100 mg capsule (CoQ-10) 200 mg PO DAILY Supplement 02/21/24
erythromycin 5 mg/gram (0.5 %) eye ointment 1 applic ophthalmic (eye) QID Eye Condition 02/21/24
Saccharomyces boulardii 250 mg capsule (Florastor) 250 mg PO BID #14 caps 02/28/24
acetaminophen 500 mg tablet (Tylenol Extra Strength) 1,000 mg (2 x 500 mg) PO Q6H #60 tabs 02/28/24
aspirin 325 mg tablet 325 mg PO DAILY #30 tabs 02/28/24
atenolol 50 mg tablet 50 mg PO BID Blood Pressure #1 tab 02/28/24
cefadroxil 500 mg capsule 500 mg PO BID #14 caps 02/28/24
celecoxib 100 mg capsule (Celebrex) 100 mg PO BID #30 caps 02/28/24
clorazepate dipotassium 7.5 mg tablet 7.5 mg PO BIDPRN PRN anxiety #1 tab 02/28/24
dexamethasone 4 mg tablet 4 mg PO Q12H Anti-inflammatory #6 tabs 02/28/24
docusate sodium 100 mg capsule 100 mg PO BID #30 caps 02/28/24
furosemide 40 mg tablet 40 mg PO DAILY Fluid Retention/Swelling #1 tab 02/28/24
lisinopril 20 mg tablet 20 mg PO DAILY Blood Pressure #1 tab 02/28/24
oxycodone 5 mg tablet 5 - 10 mg (1 - 2 x 5 mg) PO Q6H PRN moderate-severe pain #30 tabs 02/28/24
potassium chloride 20 mEq tablet,extended release(part/cryst) (Klor-Con M) 20 meq PO DAILY Supplement #1 tab 02/28/24
prochlorperazine maleate 5 mg tablet 5 mg PO Q8HPRN PRN nausea/vomiting #30 tabs 02/28/24
sennosides 8.6 mg tablet (Senna Laxative) 17.2 mg (2 x 8.6 mg) PO BID #30 tabs 02/28/24
Home Medication Changes
Saccharomyces boulardii 250 mg capsule (Florastor) 250 mg PO BID #14 caps 02/28/24
acetaminophen 500 mg tablet (Tylenol Extra Strength) 1,000 mg (2 x 500 mg) PO Q6H #60 tabs 02/28/24
aspirin 325 mg tablet 325 mg PO DAILY #30 tabs 02/28/24
cefadroxil 500 mg capsule 500 mg PO BID #14 caps 02/28/24
celecoxib 100 mg capsule (Celebrex) 100 mg PO BID #30 caps 02/28/24
dexamethasone 4 mg tablet 4 mg PO Q12H Anti-inflammatory #6 tabs 02/28/24
docusate sodium 100 mg capsule 100 mg PO BID #30 caps 02/28/24
oxycodone 5 mg tablet 5 - 10 mg (1 - 2 x 5 mg) PO Q6H PRN moderate-severe pain #30 tabs 02/28/24
prochlorperazine maleate 5 mg tablet 5 mg PO Q8HPRN PRN nausea/vomiting #30 tabs 02/28/24
sennosides 8.6 mg tablet (Senna Laxative) 17.2 mg (2 x 8.6 mg) PO BID #30 tabs 02/28/24
Pending Results: No
== END 2024-02-28 13:08 | disposition home health service (06) | DRG 467 ==
LOC: 2 SOUTH 08:22
PROVIDERS: ADMITTING PHYSICIAN Specialist; FAMILY PHYSICIAN Internal Medicine; REFERRING PHYSICIAN Internal Medicine Cardiovascular Disease
PROC: 0SW90JZ Revision of Synthetic Substitute in Right Hip Joint, Open Approach (ICD-10-PCS; 2024-02-27)
DX: T84.020A Dislocation of internal right hip prosthesis, initial encounter (principal); I50.32 Chronic diastolic (congestive) heart failure; Y79.2 Prosthetic and other implants, materials and accessory orthopedic devices associated with adverse incidents; I11.0 Hypertensive heart disease with heart failure; I48.0 Paroxysmal atrial fibrillation; K57.90 Diverticulosis of intestine, part unspecified, without perforation or abscess without bleeding
CPT/HCPCS: 36415; 73502; 80053; 83036; 85025; 86850; 86900; 86901; 87070; 97110; 97116; 97162; 97166; 97530; 97535; C1776

== ENCOUNTER 2024-03-01 07:55 | Emergency (ER) | payer MEDICARE, OTHER, SELFPAY ==
[2024-03-01 08:03] VITALS: BP 135/77
--- NOTE | 2024-03-01 08:47 | ED.GENMED ---
History of Present Illness
General
Chief Complaint: Post Operative Problem(s)
Source: patient
Exam Limitations: none
Time Seen by Provider: 03/01/24 08:20
History of Present Illness
History of Present Illness:
Postop hip revision 3 days ago. Noted some drainage on her bandage. Feels fine. No infectious symptoms no increased pain. Has noted mild weight gain but has just restarted her diuretics. Feels well.
Past History
Past History
ED Past Medical History: Arrthythmia (Atrial fibrillation), HTN and Other (Arthritis)
ED Past Surgical History: Gynecological (Hysterectomy), Orthopedic (Bilateral knee replacements, left total hip replacement) and Tonsilectomy
Social History
Tobacco: Non-smoker
Alcohol: None
Drug: None
Personal: Single
Review of Systems
Review of Systems
All Other Systems: Not applicable
Constitutional: Denies fever or chills
Respiratory: Denies trouble breathing
Phy Exam
Physical Exam
Physical Exam:
GENERAL: Alert and oriented in no apparent distress
CARDIAC: Regular rate and rhythm without any obvious murmurs.
LUNGS: Clear breath sounds,normal
ABDOMEN: Soft, without focal tenderness or distention
NEUROLOGICAL: Alert and oriented , grossly non-focal
SKIN: Warm and dry, minimal skin color change of the right lower extremity. Jany in place. Large area of ecchymosis surrounding the hip with some hematoma. No cellulitis no purulent drainage. No tenderness. Bandage was soaked with blood and
clot. However no active bleeding
MUSCULOSKELETAL: Good distal pulses and color. Hip stable. No pain with rotation
PSYCH: Normal and appropriate interaction.
Course
Vital Signs
Initial and Last Documented VS:
Initial Vital Signs
Temp Pulse Resp BP Pulse Ox
98.2 F 58 16 135/77 98
03/01/24 08:03 03/01/24 08:03 03/01/24 08:03 03/01/24 08:03 03/01/24 08:03
Last Documented Vital Signs
Temp Pulse Resp BP Pulse Ox
98.2 F 58 16 135/77 98
03/01/24 08:03 03/01/24 08:03 03/01/24 08:03 03/01/24 08:03 03/01/24 08:03
MDM/Problems Addressed
Differential Diagnosis Includes:
Reviewed with orthopedics. Picture of the wound was sent. Nothing to suspect an infectious issue. Clinically likely a hematoma/seroma. Supportive care and follow-up. Orthopedics agrees.
*Pulse Oximetry
Patient hypoxic: no
*Critical Care Note
Total Time (30-74mins, 75-104mins- exclusive of procedures): Not Applicable
Data Reviewed
Review of Other/Old Records Reveals: Operative Reports
ED Attending Note
-
Portions of this chart may have been created with voice recognition software.� Occasional wrong word or��sound alike� substitutions may have occurred due to the inherent limitations of voice recognition software.
Discharge Plan
Departure
Patient Disposition: Home (Routine Discharge)
Date of Disposition: 03/01/24
Time of Disposition: 08:50
Patient with high blood pressure during this ER visit?: Yes
Discharge Problem:
Postoperative hematoma/bleeding, Recent hip revision
Instructions: Bleeding After Surgery, BLOOD PRESSURE
Prescriptions:
No Action
estradiol 0.5 MG tablet
0.5 mg PO DAILY
flecainide 100 MG tablet
100 mg PO BID
cholecalciferol (vitamin D3) 2,000 UNITS tablet
2,000 units PO DAILY
omega 4-roa-uwf-fish oil [Fish Oil] 1 EACH capsule
1 cap PO BID
PreserVision AREDS-2 1 EACH capsule
1 ea PO BID
colestipol 1 gram Tablet
1 g PO TID
Prevagen
1 tab PO DAILY
erythromycin 5 mg/gram (0.5 %) Ointment
1 applic OPHTHALMIC (EYE) QID
Vitamin C 1,000 mg Tablet Extended Release
2,000 mg PO DAILY
coenzyme Q10 [CoQ-10] 100 mg Capsule
200 mg PO DAILY
aspirin 325 mg Tablet
325 mg PO DAILY Qty: 30 0RF
Rx Instructions:
Take daily x4 weeks for blood clot prevention; then resume Aspirin 81 mg daily.
prochlorperazine maleate 5 mg Tablet
5 mg PO Q8HPRN PRN (Reason: nausea/vomiting) Qty: 30 0RF
docusate sodium 100 mg Capsule
100 mg PO BID Qty: 30 0RF
atenolol 50 MG tablet
50 mg PO BID Qty: 1 0RF
Rx Instructions:
HOLD IF systolic blood pressure <105 while on Oxycodone.
clorazepate dipotassium 7.5 mg Tablet
7.5 mg PO BIDPRN PRN (Reason: anxiety) Qty: 1 0RF
Rx Instructions:
Caution with Oxycodone - can cause drowsiness.
Use sparingly.
dexamethasone 4 mg Tablet
4 mg PO Q12H Qty: 6 0RF
Rx Instructions:
Start night of discharge and continue every 12 hours until finished.
Take with food.
sennosides [Senna Laxative] 8.6 mg Tablet
17.2 mg PO BID Qty: 30 0RF
acetaminophen [Tylenol Extra Strength] 500 mg tablet
1,000 mg PO Q6H Qty: 60 0RF
Rx Instructions:
DO NOT exceed >4000 mg daily.
cefadroxil 500 mg capsule
500 mg PO BID Qty: 14 0RF
Rx Instructions:
Start night of discharge and continue twice a day until finished.
Prescribed by surgeon's office pre-op.
Saccharomyces boulardii [Florastor] 250 mg capsule
250 mg PO BID Qty: 14 0RF
Rx Instructions:
Over the counter. Take while on antibiotic.
If unavailable, choose a different probiotic.
oxycodone 5 mg tablet
5 - 10 mg PO Q6H PRN (Reason: moderate-severe pain) Qty: 30 0RF
Rx Instructions:
1 tab for moderate pain, 2 if severe.
Dx total joint.
furosemide 40 mg Tablet
40 mg PO DAILY Qty: 1 0RF
Rx Instructions:
HOLD IF systolic blood pressure <130 while on Oxycodone.
lisinopril 20 MG tablet
20 mg PO DAILY Qty: 1 0RF
Rx Instructions:
HOLD IF systolic blood pressure <130 while on Oxycodone.
potassium chloride [Klor-Con M20] 20 mEq Tablet,Er Particles/Crystals
20 meq PO DAILY Qty: 1 0RF
Rx Instructions:
HOLD if holding Furosemide.
celecoxib [Celebrex] 100 mg capsule
100 mg PO BID Qty: 30 0RF
Rx Instructions:
Start night of discharge. Take with food.
DO NOT take within 2 hours of Aspirin.
Referrals:
Mitch Marc MD [Family Provider] -
Activity Restrictions/Additional Instructions:
Call the orthopedist Tuesday for close follow-up
However return sooner with increased drainage fever chills pain or any other concerning symptoms
Interventions
Interventions:
*Risk Screen - Suicide Last Done: 03/01/24 08:05
*General Assessment Last Done: 03/01/24 08:41
*Neglect/Abuse Screening Last Done: 03/01/24 08:05
ED- Fall Risk Assessment Last Done: 03/01/24 08:41
*ED COVID-19 Vaccine History Last Done: 03/01/24 08:41
ED-Skin Assessment Last Done: 03/01/24 08:41
Discharge Date and Time
Print Language: KOREAN
== END 2024-03-01 08:56 | disposition home or self-care (01) ==
LOC: EMR 07:55
PROVIDERS: EMERGENCY PHYSICIAN Emergency Medicine; FAMILY PHYSICIAN Internal Medicine
DX: L76.32 Postprocedural hematoma of skin and subcutaneous tissue following other procedure (principal); Y83.8 Other surgical procedures as the cause of abnormal reaction of the patient, or of later complication, without mention of misadventure at the time of the procedure; Y79.2 Prosthetic and other implants, materials and accessory orthopedic devices associated with adverse incidents; I10 Essential (primary) hypertension; Z96.653 Presence of artificial knee joint, bilateral; Z96.642 Presence of left artificial hip joint
CPT/HCPCS: 99282

== ENCOUNTER 2024-11-18 04:55 | Emergency (ER) | payer MEDICARE, OTHER, SELFPAY ==
[2024-11-18 04:59] VITALS: BP 102/78
[2024-11-18 05:52] VITALS: BMI 23.7
--- NOTE | 2024-11-18 06:00 | EDRN ---
Pt complains of R groin pain that started Tuesday or Tuesday. No known injury. Pain is constant. Pt unable to lift R leg and is now using a walker to help her get around. No swelling. Pt had hip surgery in February on R hip. No fever/cough. Pt
has had chills. Pt took a covid test on Tuesday which was negative because she has chills. Pt no longer having chills. No urinary symptoms. Pt has been taking tylenol for pain which takes the edge off and does not last long. Last dose tylenol
2100 last night.
--- NOTE | 2024-11-18 07:00 | ED.GENMED ---
History of Present Illness
General
Chief Complaint: Musculo-Skeletal Complaint
Source: patient
Exam Limitations: none
Time Seen by Provider: 11/18/24 06:37
Nursing documentation reviewed up to this point in time: agreed with
History of Present Illness
History of Present Illness:
79-year-old female with history as noted presents to the ER for evaluation of right hip pain/groin pain. Patient reports symptoms started Tuesday and they have been constant since that time. She reports that she was in [place] on Tuesday and did more
walking than typical. Tuesday she said she had some general achiness and chills to the point that she thought she might even have COVID and took a COVID test which was reportedly negative. Over the next few days started developing worsening pain
localized in the right groin which she attributed to muscular pain in the setting of recent walking however symptoms have progressed to the point that she is having difficulty getting around and difficulty controlling the pain (has been taking
Tylenol) which prompted ER visit. She reports sharp pain in the anterior right groin/hip that is worse when she tries to move the hip, particularly with active flexion. She says symptoms are not as severe when she tries to move the leg using her
arms (i.e. passively). Denies any radicular pains down the leg. She denies any swelling in the leg. She has not had fever. She denies any falls. She has not had any abdominal pain, constipation/diarrhea, back/flank pain. She denies any other
acute complaints. She does note that she had a hip replacement bilaterally most recently on the right side in February 2024.
Past History
Past History
ED Past Medical History: Arrthythmia (Atrial fibrillation), HTN and Other (Arthritis)
ED Past Surgical History: Gynecological (Hysterectomy), Orthopedic (Bilateral knee replacements, left total hip replacement) and Tonsilectomy
Social History
Tobacco: Non-smoker
Alcohol: None
Drug: None
Personal: Single
Review of Systems
Review of Systems
All Other Systems: ROS reviewed and negative except as documented in HPI and ROS
Constitutional: Reports chills (X 1 day); Denies fever
Respiratory: Denies trouble breathing
Cardiac: Denies chest pain
Musculoskeletal: Reports joint pain (Hip pain); Denies edema
Neurological: Denies headache
Phy Exam
Physical Exam
Physical Exam:
General: Awake, alert; no acute distress
Head: Normocephalic, atraumatic
Eyes: Conjunctiva normal
Throat: Airway intact, handling secretions
Neck: Trachea midline
Lungs: Breathing comfortably with no distress, no tachypnea or hypoxia
Heart: Regular rate
Abd: Soft, non distended, nontender to deep palpation
Neuro: Cranial nerves grossly intact, speech fluid, motor and sensory intact in the extremities
Skin: No rash or erythema noted on the right hip
Extremities: No edema in extremities�specifically no edema in the right lower extremity, no calf tenderness, equal pulses in all extremities�specifically strong femoral, popliteal and DP pulses in the right leg; on exam of the right hip she has some
tenderness in the inguinal crease and proximal anterior thigh medially along the inner aspect of the quadriceps/hip flexors; she has minimal pain on passive range of motion of the right hip including flexion and extension, abduction and adduction,
internal/external rotation; on attempts at active flexion she has significant pain
Scores
Heart Failure Risk
Heart Failure Risk Score: Not Applicable
Heart Score for Chest Pain Patients
STEMI patient?: Not applicable
Withdrawal Assessment of Alcohol
Withdrawal Assessment Completed?: Not applicable
Course
Orders/Labs/Results
Orders:
Orders
11/18/24 05:03
CR Hip - RT w/wo Pel 2-3 Vw* Urgent
Comment:
Reason For Exam: pain
Include a pelvis x-ray?: Yes
11/18/24 06:53
Ketorolac [Toradol] 30 mg IM NOW STA
US Periph Venous LOWER Ext RT Urgent
Comment:
Reason For Exam: RLE pain
Vital Signs
Initial and Last Documented VS:
Initial Vital Signs
Temp Pulse Resp BP Pulse Ox
37.3 C 58 18 102/78 95
11/18/24 04:59 11/18/24 04:59 11/18/24 04:59 11/18/24 04:59 11/18/24 04:59
Last Documented Vital Signs
Temp Pulse Resp BP Pulse Ox
37.3 C 61 18 133/84 94
11/18/24 04:59 11/18/24 08:04 11/18/24 08:04 11/18/24 08:04 11/18/24 08:04
MDM/Problems Addressed
Differential Diagnosis Includes:
Groin strain, synovitis/bursitis, pelvic/hip fracture, DVT, lumbar radiculopathy; less likely referred pain from an intra-abdominal process with benign abdominal exam
MDM/Problems Addressed:
79-year-old female presents for evaluation of right hip pain over the past week started 24 hours after heavy day of walking. No specific injury or falls noted. Vitals and exam as above. She was sent for an x-ray of the hip reviewed by me no clear
pelvic fractures, right hip replacement noted hardware appears intact with no signs of periprosthetic fractures. Plan to send for an ultrasound to rule out DVT. Will treat with Toradol. Suspect likely muscular strain. Benign abdominal exam with
no reported abdominal pain�low suspicion for referred intra-abdominal process. No back pain and pain is mainly in the anterior hip, less likely lumbar radiculopathy. No fever, no erythema and minimal pain on passive range of motion goes strongly
against diagnosis of septic arthritis. Continue to monitor, reassess after the above.
Ultrasound right lower extremity shows no signs of DVT. Patient did have symptomatic improvement with Toradol was able to ambulate with less pain. Suspect likely tendinitis or groin strain. Stable for discharge can follow-up with her primary
doctor as an outpatient. She already has an orthopedist as well advised to follow-up if symptoms persist. In the meantime we will trial NSAIDs. Patient comfortable with this plan. All questions answered.
*Radiology
Radiology exam reviewed: preliminary read by ED provider and radiology read reviewed
*Pulse Oximetry
SaO2: 95
Patient hypoxic: no (95%)
*Critical Care Note
Total Time (30-74mins, 75-104mins- exclusive of procedures): Not Applicable
Data Reviewed
Source: patient
ED Attending Note
-
Portions of this chart may have been created with voice recognition software.� Occasional wrong word or��sound alike� substitutions may have occurred due to the inherent limitations of voice recognition software.
Discharge Plan
Departure
Patient Disposition: Home (Routine Discharge)
Date of Disposition: 11/18/24
Time of Disposition: 08:55
Patient with high blood pressure during this ER visit?: No
Discharge Problem:
Right groin pain, Hip pain, right
Instructions: Hip pain in adults
Prescriptions:
No Action
estradiol 0.5 MG tablet
0.5 mg PO DAILY
flecainide 100 MG tablet
100 mg PO BID
cholecalciferol (vitamin D3) 2,000 UNITS tablet
2,000 units PO DAILY
omega 7-zzz-phi-fish oil [Fish Oil] 1 EACH capsule
1 cap PO BID
PreserVision AREDS-2 1 EACH capsule
1 ea PO BID
Prevagen
1 tab PO DAILY
Vitamin C 1,000 mg Tablet Extended Release
1,000 mg PO DAILY
coenzyme Q10 [CoQ-10] 100 mg Capsule
200 mg PO DAILY
atenolol 50 MG tablet
50 mg PO BID Qty: 1 0RF
clorazepate dipotassium 7.5 mg Tablet
7.5 mg PO BIDPRN PRN (Reason: anxiety) Qty: 1 0RF
furosemide 40 mg Tablet
40 mg PO DAILY Qty: 1 0RF
lisinopril 20 MG tablet
20 mg PO DAILY Qty: 1 0RF
potassium chloride [Klor-Con M20] 20 mEq Tablet,Er Particles/Crystals
20 meq PO DAILY Qty: 1 0RF
Rx Instructions:
HOLD if holding Furosemide.
Acidophilus
2 billion cells PO DAILY
aspirin [Aspir-Low] 81 mg Tablet,Delayed Release (Dr/Ec)
81 mg PO DAILY
biotin 5,000 mcg Tablet,Disintegrating
5,000 mcg PO DAILY
Referrals:
Mitch Marc MD [Family Provider, Internal Medicine] - Follow up in 1 week
Activity Restrictions/Additional Instructions:
You should call the orthopedist to follow-up if your symptoms persist despite conservative measures as we discussed.
Thank you for visiting the Emergency Department at [facility].
1. Please schedule a follow up appointment as directed. Call first thing tomorrow morning to make an appointment.
2. If indicated, please take your medications as instructed and indicated on discharge paperwork.
3. If any of your symptoms do not improve, or persist, or become more severe within 6-12 hours, please return to the emergency department for further care.
4. Please return to the emergency department if you develop a headache, neck pain/stiffness, fever greater than 100.4F, chest pain, shortness of breath, persistent nausea, vomiting, slurred speech, difficulty walking, numbness/tingling, weakness,
signs of infection or any other symptoms that are worrisome to you.
Please call [phone] if you have any questions.
Interventions
Interventions:
*Risk Screen - Suicide Last Done: 11/18/24 04:59
*General Assessment Last Done: 11/18/24 04:59
*Neglect/Abuse Screening Last Done: 11/18/24 04:59
*ED- Fall Risk Assessment Last Done: 11/18/24 05:52
*ED COVID-19 Vaccine History Last Done: 11/18/24 08:02
ED-Musculoskeletal Assessment Last Done: 11/18/24 06:07
Discharge Date and Time
Print Language: [email or web address]
[2024-11-18] MEDS: TORADOL 30 MG IM (07:58)
[2024-11-18 08:04] VITALS: BP 133/84
== END 2024-11-18 09:16 | disposition home or self-care (01) ==
LOC: EMR 04:55
PROVIDERS: EMERGENCY PHYSICIAN Emergency Medicine; FAMILY PHYSICIAN Internal Medicine
DX: R10.31 Right lower quadrant pain (principal); M25.551 Pain in right hip; I48.91 Unspecified atrial fibrillation; I10 Essential (primary) hypertension; Z96.643 Presence of artificial hip joint, bilateral
CPT/HCPCS: 96372; 99284; 73502; 93971

== ENCOUNTER → 2024-12-31 07:47 | Outpatient (REF) | payer MEDICARE, OTHER, SELFPAY ==
[2024-12-31 09:37] LABS: Hematocrit 37.2 % (37.0-47.0); Hemoglobin 12.1 g/dL (12.0-16.0); Mean Corp Hgb Conc. 32.5 g/dL (33.0-37.0); Mean Corpuscular Volume 94.7 fL (81.0-99.0); Nucleated Red Blood Cells % 0 %; Platelet Count 303 10^3/uL (130-400); Red Cell Dist. Width 13.9 % (11.5-14.5)
[2024-12-31 10:09] LABS: ALT (SGPT) 13 U/L (0-35); AST (SGOT) 20 U/L (14-36); Albumin 4.0 g/dl (3.5-5.0); Alkaline Phosphatase 136 U/L (38-126); Blood Urea Nitrogen 22 mg/dl (7-17); Calcium 9.5 mg/dl (8.4-10.2); Carbon Dioxide 29 mmol/L (22-30); Chloride 104 mmol/L (98-107); Glucose 103 mg/dl (70-99); HDL Cholesterol 67 mg/dl; LDL Cholesterol, Calculated 54 mg/dl; Potassium 3.8 mmol/L (3.5-5.1); Sodium 140 mmol/L (135-145); Total Protein 7.2 g/dl (6.3-8.2); Very Low Density Lipoprotein 21 mg/dl (0-30); eGFR > 60.00
== END ==
LOC: HWLAB 07:47
PROVIDERS: ATTENDING PHYSICIAN Nurse Practitioner Adult Health
DX: I10 Essential (primary) hypertension (principal); I48.0 Paroxysmal atrial fibrillation; I50.32 Chronic diastolic (congestive) heart failure; M48.061 Spinal stenosis, lumbar region without neurogenic claudication; M18.0 Bilateral primary osteoarthritis of first carpometacarpal joints; Z23 Encounter for immunization
CPT/HCPCS: 36415; 80053; 80061; 85025